=== PATIENT | female | born 1970 | race African-American/Black ===

== ENCOUNTER 2017-10-06 08:18 | Emergency (ER) | payer MEDICAID, OTHER ==
[~2017-10-06 08:18] MED LIST: ATEN50TA; CARB100T; PHEN60IN
[2017-10-06 09:17] LABS: Basophils # (auto) 0 uL; Basophils % (auto) 0.2 % (0.0-2.0); Eosinophils # (auto) 0 uL; Eosinophils % (auto) 0.1 % (0.0-7.0); Hemoglobin 12.6 g/dL (12.2-16.2); Lymphocytes # (auto) 2.5 uL; Lymphocytes % (auto) 41.2 % (10.0-50.0); Mean Corpuscular Volume 91.3 fL (80.0-100.0); Monocytes # (auto) 0.5 uL; Monocytes % (auto) 7.9 % (0.0-12.0); Neutrophils # (auto) 3.1 uL; Neutrophils % (auto) 50.6 % (37.0-80.0); Platelet Count (auto) 327 10^3/uL (140-450); Red Blood Cells 4.05 10^6/uL (4.0-5.20); Red Cell Distribution Width 13.4 % (11.8-14.3); White Blood Cell 6.1 10^3/uL (4.4-10.8)
[2017-10-06 09:27] LABS: Urine Bacteria NONE SEEN /hpf (None Seen); Urine Blood 2+ /uL (Negative); Urine Mucus FEW (None Seen); Urine Specific Gravity 1.022 (1.001-1.035); Urine WBC 1 /hpf (0 - 5)
[2017-10-06 09:29] VITALS: BP 143/89
[2017-10-06 09:35] LABS: Albumin 3.4 g/dL (3.4-5.0); BUN/Creatinine Ratio 9.5; Bilirubin, Total 0.2 mg/dL (0.2-1.0); Calcium 8.4 mg/dL (8.5-10.1); Potassium 3.2 mmol/L (3.5-5.1); Total Protein 7.1 g/dL (6.4-8.2)
[2017-10-06] MEDS ORDERED: SODIUM CHLORIDE 0.9% 1,000 ML IV ONE (10:10)
[2017-10-06] MEDS ORDERED: KETOROLAC TROMETH 30 MG/ML 1ML VIAL IV ONE (10:15)
== END 2017-10-06 11:41 | disposition home or self-care (01) ==
LOC: ER 08:18
DX: E87.6 Hypokalemia (principal); F12.10 Cannabis abuse, uncomplicated; I10 Essential (primary) hypertension; F17.210 Nicotine dependence, cigarettes, uncomplicated; Z90.49 Acquired absence of other specified parts of digestive tract
CPT/HCPCS: 36415; 80053; 81001; 82150; 83690; 85025; 96374; 99284; J1885

== ENCOUNTER 2018-02-28 14:38 | Emergency (ER) | payer MEDICAID ==
[~2018-02-28] VITALS: Ht 162.6 cm; Wt 89.8 kg
[2018-02-28 14:51] VITALS: BP 165/91
== END 2018-02-28 16:16 | disposition left against medical advice (07) ==
LOC: ER 14:38
DX: Z48.01 Encounter for change or removal of surgical wound dressing (principal); Z53.21 Procedure and treatment not carried out due to patient leaving prior to being seen by health care provider

== ENCOUNTER 2018-06-26 18:34 | Emergency (ER) | payer MEDICAID ==
[~2018-06-26] VITALS: Ht 162.6 cm; Wt 97.1 kg
[2018-06-26 19:02] VITALS: BP 124/82
== END 2018-06-26 19:13 | disposition left against medical advice (07) ==
LOC: EDBD 18:34 → ER 18:40
DX: R56.9 Unspecified convulsions (principal); Z53.21 Procedure and treatment not carried out due to patient leaving prior to being seen by health care provider
CPT/HCPCS: 93005